=== PATIENT | female | born 1995 | race Caucasian/White ===

== ENCOUNTER 2016-11-08 11:54 | Emergency (ER) | payer BC, OTHER ==
[~2016-11-08] VITALS: Ht 157.5 cm; Wt 87.0 kg
[2016-11-08 12:02] VITALS: Ht 157.5 cm; Wt 87.0 kg
[2016-11-08 13:38] LABS: ADD SCAN DIFF NO
[2016-11-08 13:41] LABS: BASOPHIL # 0.1 10^3/ul (0.0-0.1); BASOPHILS % 0.5 % (0.0-2.0); EOSINOPHILS # 0.1 10^3/ul (0.0-0.5); EOSINOPHILS % 0.7 % (0.0-7.0); HEMOGLOBIN 13.4 g/dl (12.0-16.0); LYMPHOCYTES # 1.7 10^3/ul (0.8-2.9); LYMPHOCYTES % 17.7 % (15.0-51.0); MEAN CORPUSCULAR HEMOGLOBIN 31.1 pg (29.0-33.0); MEAN CORPUSCULAR HGB CONC 33.5 g/dl (32.0-37.0); MEAN CORPUSCULAR VOLUME 92.8 fl (82.0-101.0); MEAN PLATELET VOLUME 11.5 fl (7.4-10.4); MONOCYTE # 0.7 10^3/ul (0.3-0.9); MONOCYTES % 7.8 % (0.0-11.0); NEUTROPHIL # 6.9 10^3/ul (1.6-7.5); NEUTROPHILS % 72.6 % (39.0-77.0); PLATELET COUNT 325 10^3/UL (140-415); RED BLOOD COUNT 4.31 10^6/ul (4.20-5.40); RED CELL DISTRIBUTION WIDTH 12.3 % (11.5-14.5); WHITE BLOOD COUNT 9.5 10^3/ul (4.8-10.8)
--- NOTE | 2016-11-08 13:56 | RADRPT ---
PROCEDURE: OB Ultrasound. CLINICAL INDICATION: Positive test. Vaginal bleeding. TECHNIQUE: Ultrasound of the pelvis was performed with transabdominal and transvaginal sonography in the axial and sagittal planes. COMPARISON: No prior study is available for comparison. FINDINGS: There is a single intrauterine gestational sac. pole and yolk sac are present. There is heart motion. heart rate is 106 beats per minute. [place]-rump length is 0.43 cm. Mean sac diameter is 1.56 cm. Menstrual age by ultrasound dates is 6 weeks 2 days. This indicates an expected date of delivery of 07/02/2017. The right ovary appears normal measuring 3.2 x 2.6 x 2.6 cm. The left ovary appears normal measuring 2.4 x 1.2 x 1.6 cm. Color Doppler and pulsed Doppler sonography demonstrate normal flow to the ovaries. A small amount of free fluid is present in the right adnexa and cul-de-sac. IMPRESSION: 1. Single live intrauterine gestation of 6 weeks 2 days menstrual age by ultrasound dates. 2. Expected date of delivery is 07/02/2017. 3. Small amount of free fluid, likely physiologic. RPTAT: QQ .Steffen García MD, MD Date Time Electronically viewed and signed by .Steffen García MD, MD on 11/08/2016 13:55 .R/
--- NOTE | 2016-11-08 17:45 | ERD ---
ER Documentation Chief Complaint Date/Time DATE: 11/08/16 TIME: 17:42 Chief Complaint VAG BLEEDING STARTED 1100 LMP 09/24 "FLOW LIKE A PERIOD W/ A CLOT" HPI 21-year-old female patient who is a presents the ED complaining of vaginal bleeding that started earlier today. States that she is currently . Patient denies any vaginal discharge, dysuria, urgency, frequency, abdominal pain, nausea, vomiting, diarrhea. Reports that her last menses was on September 26, 2016. States that she does not have an ANTHROPOLOGY PROFESSOR. ROS All systems reviewed and are negative except as per history of present illness. PMhx/Soc Medical and Surgical Hx: pt denies Medical Hx, pt denies Surgical Hx Hx Alcohol Use: No Hx Substance Use: No Hx Tobacco Use: No Smoking Status: Never smoker Physical Exam Vitals Vital Signs Date Time Temp Pulse Resp B/P Pulse Ox O2 Delivery O2 Flow Rate FiO2 11/08/16 12:02 98.1 80 20 115/76 98 Physical Exam Const: Cuc-jst-[id number], well-nourished. In no acute distress. Head: Atraumatic, normocephalic Eyes: Normal Conjunctiva without injection. No purulent discharge. ENT: Normal external ear, nose. Moist oropharynx without tonsillar exudates. Non -erythematous pharynx. Uvula midline. No drooling. No trismus. Neck: No cervical midline tenderness. Full range of motion. No meningismus. No cervical lymphadenopathy. No JVD. Resp: Clear to auscultation bilaterally. No wheezing, rhonchi, rales, or crackles. No accessory muscle use. No retractions. Cardio: Regular rate and rhythm. No murmurs, rubs or gallops. Abd: Soft, nontender, non distended. Normal bowel sounds. No palpable masses. No rebound tenderness. No guarding. Negative McBurney's point. Negative psoas sign. Negative obturator sign. Skin: No petechiae or rashes Back: No midline tenderness. No CVA tenderness. Ext: No cyanosis, or edema. Neur: Awake and alert. Normal gait. Normal coordination. Psych: Normal Mood and Affect Results 24 hrs Laboratory Tests Test 11/08/16 13:10 White Blood Count 9.510^3/ul Red Blood Count 4.3110^6/ul Hemoglobin 13.4g/dl Hematocrit 40.0% Mean Corpuscular Volume 92.8fl Mean Corpuscular Hemoglobin 31.1pg Mean Corpuscular Hemoglobin Concent 33.5g/dl Red Cell Distribution Width 12.3% Platelet Count 98177^3/UL Mean Platelet Volume 11.5fl Neutrophils % 72.6% Lymphocytes % 17.7% Monocytes % 7.8% Eosinophils % 0.7% Basophils % 0.5% Nucleated Red Blood Cells % 0.0/100WBC Neutrophils # 6.910^3/ul Lymphocytes # 1.710^3/ul Monocytes # 0.710^3/ul Eosinophils # 0.110^3/ul Basophils # 0.110^3/ul Nucleated Red Blood Cells # 0.010^3/ul Beta HCG, Quantitative 68304.0mIU/ml Procedures/MDM 21-year-old female patient who is a she went P0 presents the ED complaining of vaginal bleeding that started yesterday. Patient is afebrile and nontoxic- appearing. Patient has normal vital signs. An ultrasound, beta-hCG, CBC, type and RH, UA was ordered to evaluate patient. CBC: No evidence of severe infection or anemia Urine: No elevation in nitrites, leukocyte esterase, hematuria. No evidence of UTI Rh: O positive No indication for Rhogam at this time. beta Hc PROCEDURE: OB Ultrasound. CLINICAL INDICATION: Positive test. Vaginal bleeding. TECHNIQUE: Ultrasound of the pelvis was performed with transabdominal and transvaginal sonography in the axial and sagittal planes. COMPARISON: No prior study is available for comparison. FINDINGS: There is a single intrauterine gestational sac. pole and yolk sac are present. There is heart motion. heart rate is 106 beats per minute. [place]-rump length is 0.43 cm. Mean sac diameter is 1.56 cm. Menstrual age by ultrasound dates is 6 weeks 2 days. This indicates an expected date of delivery of 07/02/2017. The right ovary appears normal measuring 3.2 x 2.6 x 2.6 cm. The left ovary appears normal measuring 2.4 x 1.2 x 1.6 cm. Color Doppler and pulsed Doppler sonography demonstrate normal flow to the ovaries. A small amount of free fluid is present in the right adnexa and cul-de-sac. IMPRESSION: 1. Single live intrauterine gestation of 6 weeks 2 days menstrual age by ultrasound dates. 2. Expected date of delivery is 07/02/2017. 3. Small amount of free fluid, likely physiologic. Patient eloped prior to giving a sample of her urine. Patient has a single live intrauterine gestation of 6 weeks and 2 days. Patient's bleeding symptoms have stabilized while in the department.Low suspicion for symptomatic anemia, ectopic , sepsis, PID, appendicitis, ovarian torsion, tubo-ovarian abscess, surgical abdomen, or other emergent conditions. Patient was educated that there is a risk for threatened . Follow up with her ANTHROPOLOGY PROFESSOR in 2 days for further evaluation and treatment. Instructed patient to return to the ED sooner for any worsening symptoms. Patient's questions were answered. Patient understood and agreed with discharge plan. Patient discharged stable. Departure Diagnosis: Primary Impression: Vaginal bleeding in Trimester: first trimester Qualified Code: O46.91 - Vaginal bleeding in , first trimester Condition: Stable GALDINO GARCIA PA-C Nov 08, 2016 17:44
== END 2016-11-08 16:18 | disposition left against medical advice (07) ==
LOC: FTE 11:54
DX: O46.91 Antepartum hemorrhage, unspecified, first trimester (principal); Z3A.01 Less than 8 weeks gestation of pregnancy
CPT/HCPCS: 76801; 76817; 84702; 85025; 86900; 86901

== ENCOUNTER 2017-07-01 20:21 | Inpatient (IN) | END 2017-07-04 18:08 | disposition home or self-care (01) | DRG 775 ==

== ENCOUNTER 2017-09-14 21:58 | Emergency (ER) | END 2017-09-15 06:13 | disposition home or self-care (01) ==

== ENCOUNTER 2018-09-09 01:48 | Emergency (ER) | payer MEDICAID, OTHER ==
[~2018-09-09] VITALS: Ht 162.6 cm; Wt 95.1 kg
[~2018-09-09 01:48] MED LIST: ACET500C5 PO; CIPR500T4 PO; FAMO-96 PO; IBUP-1542 PO; ONDA4TAB8 PO
[2018-09-09 01:58] VITALS: Ht 162.6 cm; Wt 95.1 kg
[2018-09-09] MEDS ORDERED: BACL10TA PO (05:16)
[2018-09-09] MEDS ORDERED: IBUP-1542 PO (05:16)
[2018-09-09] MEDS ORDERED: IBUPROFEN 600 MG TAB PO ONE (05:30)
[2018-09-09 05:34] VITALS: BP 105/56; PULSE 73; RESP 18
--- NOTE | 2018-09-10 22:46 | ERD ---
ER Documentation Chief Complaint Chief Complaint headache x 4 hours HPI Patient is a 23-year-old female presents the ER for concerns of a headache x4 hours. Patient states pain is localized to the frontal aspect of her head. She also reports pain in her right posterior shoulder. Patient states she felt nauseous earlier however that has not improved. Patient denies any vomiting, blurry vision, photophobia, phonophobia, neck pain, neck stiffness, fevers, chills or LOC. Patient reports headaches in the past. Patient denies worse headache of life. Patient denies any chest pain or shortness of breath. Patient denies . LMP 08/30/18. ROS All systems reviewed and are negative except as per history of present illness. Medications Home Meds Active Scripts Baclofen* (Baclofen*) 10 Mg Tablet, 10 MG PO TID, #20 TAB Prov:REGLA BASS PA-C 09/09/18 Ibuprofen* (Motrin*) 600 Mg Tab, 600 MG PO Q6, #30 TAB Prov:REGLA BASS PA-C 09/09/18 Famotidine* (Pepcid*) 20 Mg Tablet, 20 MG PO DAILY for 30 Days, TAB Prov:PASILACAROL LEON F 09/15/17 Acetaminophen* (Tylophen*) 500 Mg Capsule, 1 CAP PO Q6H PRN for PAIN AND OR ELEVATED TEMP, #20 CAP Prov:PASILABANCAROL F 09/15/17 Ondansetron Hcl* (Zofran*) 4 Mg Tablet, 4 MG PO Q8H PRN for NAUSEA AND/OR VOMITING, #30 TAB Prov:PASILACAROL LEON F 09/15/17 Ciprofloxacin Hcl* (Ciprofloxacin Hcl*) 500 Mg Tablet, 500 MG PO BID for 10 Days, TAB Prov:PASILABANCAROL F 09/15/17 Ibuprofen* (Ibuprofen*) 600 Mg Tablet, 600 MG PO Q6, #60 TAB 0 Refills Prov:BOAZ NAVA MD 07/03/17 Allergies Allergies: Coded Allergies: No Known Allergy (Unverified , 07/01/17) PMhx/Soc Medical and Surgical Hx: pt denies Medical Hx, pt denies Surgical Hx Hx Alcohol Use: No Hx Substance Use: No Hx Tobacco Use: No Smoking Status: Never smoker FmHx Family History: No diabetes Physical Exam Vitals Vital Signs Date Temp Pulse Resp B/P (MAP) Pulse Ox O2 O2 Flow FiO2 Time Delivery Rate 09/09/18 98.6 73 18 105/56 99 Room Air 05:34 (72) 09/09/18 97.2 73 18 117/63 99 01:58 (81) Physical Exam GENERAL: Well-developed, well-nourished female. Appears in no acute distress. Speaking in full sentences. HEAD: Normocephalic, atraumatic. EYES: Pupils are equally reactive bilaterally. EOMs grossly intact. No conjunctival erythema. ENT: Moist mucous membranes. No uvula deviation. No kissing tonsils. NECK: Supple. No meningismus. Normal range of motion of the neck. Tender to palpation of R trapezius muscles. LUNG: Clear to auscultation bilaterally. No rhonchi, wheezing, rales or coarse breath sounds. HEART: Regular rate and rhythm. No murmurs, rubs or gallops. EXTREMITIES: Equal pulses bilaterally. No peripheral clubbing, cyanosis or edema. No unilateral leg swelling. NEUROLOGIC: Alert and oriented x3, cooperative. Mood and affect appropriate to situation. Cranial nerves II through XII are grossly intact. Normal speech. Motor exam: 5/5 strength in upper and lower extremities. Sensory exam: Sensation intact to light touch on all four extremities. Cerebellar function exam: Rapid alternating movements intact. No dysmetria on pgqjlp-wh-gvos and olvr-nw-vbxv test. Steady gait. No pronator drift. Equal cloth shrinking tester strength. SKIN: Normal color. Warm and dry. No rashes or lesions. Results 24 hrs Current Medications Medications Dose Sig/Mela Start Time Status Last (Trade) Ordered Route PRN Stop Time Admin Dose Reason Admin Ibuprofen 600 mg ONCE ONCE 09/09/18 DC 09/09/18 (Motrin) PO 05:30 09/09/18 05:13 05:31 Procedures/MDM MEDICAL DECISION MAKING: This is a 23-year-old female who presents to the ER for concerns of a headache and right-sided posterior shoulder pain x4 days. Vital signs were reviewed. Patient was afebrile. Patient is not hypoxic. Patient denied any fevers, neck stiffness, jaw claudication, visual changes or LOC. Full neurological exam was normal. On exam, patient did have tenderness to palpation of the right t rapezius muscles. Patient was given ibuprofen. Patient likely has muscle spasms which are contributing to her headache. Low suspicion for intracranial hemorrhage, meningitis, encephalitis, CO poisoning, temporal arteritis, benign intracranial hypertension, intracranial mass, glaucoma, preeclampsia, sinusitis, cluster headache. PRESCRIPTIONS: Ibuprofen, baclofen DISCHARGE: At this time, patient is stable for discharge and outpatient management. I have encouraged the patient to hydrate well. I have instructed the patient to follow- up with his/her primary care physician in 1-2 days. If symptoms persist, patient may need to see a specialist for further examinations and testing. I have instructed the patient to promptly return to the ER at any time for any new or worsening symptoms including increased increased pain, fever, nausea, vomiting, numbness, neck stiffness, visual changes, weakness or LOC. The patient and/or family expressed understanding of and agreement with this plan. All questions were answered. Home care instructions were provided. Disclaimer: Inadvertent spelling and grammatical errors are likely due to EHR/dictation software use and do not reflect on the overall quality of patient care. Also, please note that the electronic time recorded on this note does not necessarily reflect the actual time of the patient encounter. Departure Diagnosis: Primary Impression: Headache Headache type: unspecified Headache chronicity pattern: unspecified pattern Intractability: not intractable Qualified Codes: R51 - Headache Additional Impression: Muscle spasms of neck Condition: Fair Patient Instructions: Self-Care for Headaches Referrals: [facility] YOU HAVE RECEIVED A MEDICAL SCREENING EXAM AND THE RESULTS INDICATE THAT YOU DO NOT HAVE A CONDITION THAT REQUIRES URGENT TREATMENT IN THE EMERGENCY DEPARTMENT. FURTHER EVALUATION AND TREATMENT OF YOUR CONDITION CAN WAIT UNTIL YOU ARE SEEN IN YOUR DOCTORS OFFICE WITHIN THE NEXT 1-2 DAYS. IT IS YOUR RESPONSIBILITY TO MAKE AN APPOINTMENT FOR FOLOW-UP CARE. IF YOU HAVE A PRIMARY DOCTOR --you should call your primary doctor and schedule an appointment IF YOU DO NOT HAVE A PRIMARY DOCTOR YOU CAN CALL OUR PHYSICIAN REFERRAL HOTLINE AT IF YOU CAN NOT AFFORD TO SEE A PHYSICIAN YOU CAN CHOSE FROM THE FOLLOWING [facility] [address] [facility] [address] [facility] [facility] [address] [facility] [address] [facility] [address] [facility]. [facility]. [address] [facility]. [facility] YOU HAVE RECEIVED A MEDICAL SCREENING EXAM AND THE RESULTS INDICATE THAT YOU DO NOT HAVE A CONDITION THAT REQUIRES URGENT TREATMENT IN THE EMERGENCY DEPARTMENT. FURTHER EVALUATION AND TREATMENT OF YOUR CONDITION CAN WAIT UNTIL YOU ARE SEEN IN YOUR DOCTORS OFFICE WITHIN THE NEXT 1-2 DAYS. IT IS YOUR RESPONSIBILITY TO MAKE AN APPOINTMENT FOR FOLOW-UP CARE. IF YOU HAVE A PRIMARY DOCTOR --you should call your primary doctor and schedule and appointment IF YOU DO NOT HAVE A PRIMARY DOCTOR YOU CAN CALL OUR PHYSICIAN REFERRAL HOTLINE AT . IF YOU CAN NOT AFFORD TO SEE A PHYSICIAN YOU CAN CHOSE FROM THE FOLLOWING [facility] INSTITUTIONS: [facility] [address] [place] [address] [facility] [address] [place], [place] [id number] [place] [address] [address] [place] [address] Additional Instructions: Call your primary care doctor TOMORROW for an appointment during the next 1-2 days.See the doctor sooner or return here if your condition worsens before your appointment time. REGLA BASS PA-C September 10, 2018 22:46
== END 2018-09-09 05:35 | disposition home or self-care (01) ==
LOC: FTE 01:48
DX: R51 Headache (principal); M62.838 Other muscle spasm
CPT/HCPCS: Z7502; Z7610; 99282

== ENCOUNTER 2018-12-28 11:16 | Emergency (ER) | payer SELFPAY ==
[~2018-12-28] VITALS: Ht 160 cm; Wt 92.4 kg
[~2018-12-28 11:16] MED LIST changes: +BACL10TA PO
[2018-12-28 11:50] VITALS: RESP 18; Ht 160 cm; Wt 92.4 kg
[2018-12-28 15:35] VITALS: BP 135/67; PULSE 78
== END 2018-12-28 15:36 | disposition home or self-care (01) ==
LOC: FTE 11:16
DX: F41.9 Anxiety disorder, unspecified (principal)
CPT/HCPCS: 80053; 82962; 85025; 93005